=== PATIENT | female | born 1940 | race Caucasian/White ===

== ENCOUNTER 2017-01-02 09:51 | Inpatient (IN) | payer OTHER, MEDICARE ==
[~2017-01-02] VITALS: Ht 154.9 cm; Wt 79.2 kg
[~2017-01-02 09:51] MED LIST: CALC-1009 PO; DILT240C93 PO; HYDR25TA PO; WOMENS VITAMIN PO
[2017-01-02] MEDS ORDERED: METO-323 PO (10:14)
[2017-01-02] MEDS ORDERED: SIMV5TAB6 PO (10:14)
[2017-01-02] MEDS ORDERED: METF500T4 PO (10:14)
[2017-01-02 10:40] LABS: BASOPHILS % (AUTO) 0.4 % (0.0-2.0); HEMATOCRIT 39.7 % (36-46); HEMOGLOBIN 13.2 g/dL (12.0-16.0); LYMPHOCYTES # (AUTO) 2.7 K/uL (1.0-4.8); LYMPHOCYTES % (AUTO) 25.8 % (22.0-44.0); MEAN CORPUSCULAR HGB CONC 33.2 G/dL (31.0-37.0); MEAN CORPUSCULAR VOLUME 90 fL (80-100); MONOCYTES % (AUTO) 9.2 % (2.0-9.0); NEUTROPHILS # (AUTO) 6.6 K/uL (1.8-7.7); NEUTROPHILS % (AUTO) 63.6 % (40.0-70.0); PLATELET COUNT (AUTO) 351 K/uL (150-450); RED BLOOD CELL COUNT(AUTO) 4.38 MIL/uL (4.00-5.20); WHITE BLOOD COUNT (AUTO) 10.4 K/uL (4.5-11.0)
[2017-01-02 10:48] LABS: ANION GAP 9 mmol/L (8-16); CALCIUM, TOTAL 9.3 mg/dL (8.8-10.5); CARBON DIOXIDE 29 mmol/L (22-29); CHLORIDE 99 mmol/L (98-107); CREATININE 0.71 mg/dL (0.60-1.30); GLOMERULAR FILTR. RATE CALC > 60 mL/min (>60); POTASSIUM 3.8 mmol/L (3.5-5.1); SODIUM SERUM 137 mmol/L (136-145); UREA NITROGEN, BLOOD 13 mg/dL (7-18)
[2017-01-02 10:52] LABS: PROTHROMBIN TIME 10.6 SEC (9.4-11.6)
[2017-01-02 10:56] LABS: ALANINE AMINOTRANSFERASE 24 U/L (12-78); ALBUMIN 3.6 g/dL (3.4-5.0); ASPARTATE AMINOTRANSFERASE 13 U/L (15-37); BILIRUBIN,TOTAL 0.5 mg/dL (0.1-1.0); CREATINE KINASE, TOTAL 58 U/L (26-192); TOTAL PROTEIN, SERUM 7.3 g/dL (6.4-8.2)
[2017-01-02] MEDS ORDERED: ASPIRIN 81 MG CHEWABLE TABLET PO ONE ×2 (11:30→12:00)
[2017-01-02 12:35] LABS: HEMOGLOBIN A1C 6.9 % (4.5-6.2)
[2017-01-02 12:42] LABS: VITAMIN B12 LEVEL 746 pg/mL (211-911)
[2017-01-02 13:05] LABS: CHOL/HDL RATIO 4.7 (3.9-5.7); THYROID STIMULATING HORMONE 1.15 uIU/mL (0.36-3.74)
[2017-01-02 13:24] VITALS: BP 111/54
[2017-01-02 17:14] VITALS: BP 198/86
[2017-01-02 17:34] VITALS: BP 189/94
[2017-01-02] MEDS ORDERED: MORPHINE SULFATE 2 MG/ML SYRINGE IVP PRN (18:15)
[2017-01-02] MEDS: DILTIAZEM HCL CD 240 MG ER CAPSULE PO SCH (19:18)
[2017-01-02] MEDS: ACETAMINOPHEN 325 MG TABLET PO PRN (19:18)
[2017-01-02 19:32] LABS: GLUCOSE,POINT OF CARE 118 MG/DL (70-110)
[2017-01-02 21:24] VITALS: BP 156/78
[2017-01-02 23:14] VITALS: BP 157/65
[2017-01-03] VITALS (8 sets, daily range): BP systolic 146–184; BP diastolic 64–97
[2017-01-03] MEDS: HEPARIN SODIUM,PORCINE 5,000 UNITS/ML VIAL SQ SCH ×4 (00:05→23:41)
[2017-01-03] MEDS: PANTOPRAZOLE SODIUM 40 MG DR TABLET PO SCH (08:41)
[2017-01-03] MEDS: ACETAMINOPHEN 325 MG TABLET PO PRN ×2 (08:42→19:01)
[2017-01-03] MEDS ORDERED: TraMADol HCL 50 MG TABLET PO PRN (13:15)
[2017-01-03] MEDS: ASPIRIN 81 MG CHEWABLE TABLET PO SCH (13:49)
[2017-01-03] MEDS: METOPROLOL SUCCINATE 25 MG ER TABLET PO SCH (13:49)
[2017-01-03] MEDS: HYDROCHLOROTHIAZIDE 25 MG TABLET PO SCH (13:49)
[2017-01-03 17:33] LABS: GLUCOSE,POINT OF CARE 99 MG/DL (70-110)
[2017-01-03 17:52] LABS: GLUCOSE,POINT OF CARE 142 MG/DL (70-110)
[2017-01-03] MEDS: MetFORMIN HCL 500 MG TABLET PO SCH (17:57)
[2017-01-03] MEDS: DILTIAZEM HCL CD 240 MG ER CAPSULE PO SCH (19:47)
[2017-01-04 04:48] VITALS: BP 141/76
[2017-01-04 07:55] VITALS: BP 107/79
[2017-01-04] MEDS: ACETAMINOPHEN 325 MG TABLET PO PRN (08:10)
[2017-01-04] MEDS: DILTIAZEM HCL CD 240 MG ER CAPSULE PO SCH (08:10)
[2017-01-04] MEDS: METOPROLOL SUCCINATE 25 MG ER TABLET PO SCH (08:10)
[2017-01-04] MEDS: ASPIRIN 81 MG CHEWABLE TABLET PO SCH (08:10)
[2017-01-04] MEDS: HYDROCHLOROTHIAZIDE 25 MG TABLET PO SCH (08:11)
[2017-01-04] MEDS: MetFORMIN HCL 500 MG TABLET PO SCH (08:11)
[2017-01-04] MEDS: PANTOPRAZOLE SODIUM 40 MG DR TABLET PO SCH (08:11)
[2017-01-04] MEDS: HEPARIN SODIUM,PORCINE 5,000 UNITS/ML VIAL SQ SCH (08:11)
[2017-01-04] MEDS ORDERED: SIMVASTATIN 10 MG TABLET PO SCH (09:00)
[2017-01-04] MEDS ORDERED: MULTIVITAMINS, THERAPEUTIC TABLET PO SCH (09:00)
[2017-01-04] MEDS ORDERED: SIMVASTATIN 5 MG TABLET PO SCH (09:00)
[2017-01-04] MEDS ORDERED: CALCIUM OYSTER SHELL 250 MG-VIT D3 125 UNITS TABLET PO SCH (09:00)
[2017-01-04] MEDS ORDERED: ASPI81TA2 PO (11:06)
[2017-01-04] MEDS ORDERED: SIMV-259 PO (11:06)
[2017-01-04 11:34] VITALS: BP 148/75
== END 2017-01-04 12:21 | disposition home or self-care (01) | DRG 69 ==
LOC: EMS 09:53 → AHU 12:38 → 5N 19:50 → 6N 01-03 16:05
PROVIDERS: ADMIT Hospitalist; ATTEND Hospitalist
DX: G45.9 Transient cerebral ischemic attack, unspecified (principal); E11.9 Type 2 diabetes mellitus without complications; I10 Essential (primary) hypertension; E78.5 Hyperlipidemia, unspecified; F80.2 Mixed receptive-expressive language disorder; E78.00 Pure hypercholesterolemia, unspecified; Z91.011 Allergy to milk products; Z79.84 Long term (current) use of oral hypoglycemic drugs; Z79.899 Other long term (current) drug therapy; Z90.49 Acquired absence of other specified parts of digestive tract; Z98.51 Tubal ligation status; Z98.890 Other specified postprocedural states; Z82.3 Family history of stroke; Z82.49 Family history of ischemic heart disease and other diseases of the circulatory system; Z81.2 Family history of tobacco abuse and dependence; Z82.0 Family history of epilepsy and other diseases of the nervous system; Z98.49 Cataract extraction status, unspecified eye
CPT/HCPCS: 70450; 70544; 70551; 82607; 82746; 82962; 83036; 84443; 93005; 93306; 93880; 99285; J1644

== ENCOUNTER → 2017-05-28 | Outpatient (CLI) | payer MEDICARE, OTHER ==
[~2017-05-28] MED LIST changes: +ASPI81TA2 PO; +METF500T4 PO; +METO-323 PO; +SIMV-259 PO
[2017-05-28 09:38] LABS: HEMOGLOBIN A1C 6.8 % (4.5-6.2)
[2017-05-28 09:44] LABS: BASOPHILS % (AUTO) 0.7 % (0.0-2.0); EOSINOPHILS % (AUTO) 2.9 % (1.0-6.0); HEMATOCRIT 40.4 % (36-46); LYMPHOCYTES # (AUTO) 2.7 K/uL (1.0-4.8); LYMPHOCYTES % (AUTO) 26.5 % (22.0-44.0); MEAN CORPUSCULAR HEMOGLOBIN 30.7 pg (26.0-34.0); MEAN CORPUSCULAR HGB CONC 34.7 G/dL (31.0-37.0); MEAN CORPUSCULAR VOLUME 88 fL (80-100); MONOCYTES # (AUTO) 0.9 K/uL (0.1-1.0); MONOCYTES % (AUTO) 8.6 % (2.0-9.0); NEUTROPHILS # (AUTO) 6.3 K/uL (1.8-7.7); NEUTROPHILS % (AUTO) 61.3 % (40.0-70.0); PLATELET COUNT (AUTO) 323 K/uL (150-450); RED BLOOD CELL COUNT(AUTO) 4.57 MIL/uL (4.00-5.20); WHITE BLOOD COUNT (AUTO) 10.3 K/uL (4.5-11.0)
[2017-05-28 09:52] LABS: ALANINE AMINOTRANSFERASE 26 U/L (12-78); ALBUMIN 3.8 g/dL (3.4-5.0); ANION GAP 9 mmol/L (8-16); ASPARTATE AMINOTRANSFERASE 18 U/L (15-37); BILIRUBIN,TOTAL 0.8 mg/dL (0.1-1.0); CALCIUM, TOTAL 9.7 mg/dL (8.8-10.5); CARBON DIOXIDE 28 mmol/L (22-29); CHLORIDE 98 mmol/L (98-107); CHOL/HDL RATIO 4.3 (3.9-5.7); CREATININE 0.81 mg/dL (0.60-1.30); GLOMERULAR FILTR. RATE CALC > 60 mL/min (>60); POTASSIUM 4.1 mmol/L (3.5-5.1); SODIUM SERUM 135 mmol/L (136-145); THYROID STIMULATING HORMONE 2.67 uIU/mL (0.36-3.74); TOTAL PROTEIN, SERUM 7.4 g/dL (6.4-8.2); UREA NITROGEN, BLOOD 15 mg/dL (7-18)
== END | disposition home or self-care (01) ==
LOC: LABPV 07:24
PROVIDERS: ATTEND Internal Medicine
DX: Z00.01 Encounter for general adult medical examination with abnormal findings (principal); E11.69 Type 2 diabetes mellitus with other specified complication; E78.5 Hyperlipidemia, unspecified
CPT/HCPCS: 82043; 82570; 83036; 84443

== ENCOUNTER → 2017-10-08 | Outpatient (CLI) | payer MEDICARE ==
[~2017-10-08] MED LIST changes: -ASPI81TA2 PO; +ASPI81TA39 PO; -METO-323 PO; +METO25XL PO
[2017-10-08 11:47] LABS: HEMOGLOBIN A1C 6.6 % (4.5-6.2)
[2017-10-08 11:53] LABS: ALANINE AMINOTRANSFERASE 25 U/L (12-78); ALBUMIN 3.6 g/dL (3.4-5.0); ANION GAP 9 mmol/L (8-16); ASPARTATE AMINOTRANSFERASE 14 U/L (15-37); BILIRUBIN,TOTAL 0.6 mg/dL (0.1-1.0); CALCIUM, TOTAL 9.8 mg/dL (8.8-10.5); CARBON DIOXIDE 29 mmol/L (22-29); CHLORIDE 98 mmol/L (98-107); CHOL/HDL RATIO 4.4 (3.9-5.7); CREATININE 0.77 mg/dL (0.60-1.30); GLOMERULAR FILTR. RATE CALC > 60 mL/min (>60); POTASSIUM 3.8 mmol/L (3.5-5.1); SODIUM SERUM 136 mmol/L (136-145); TOTAL PROTEIN, SERUM 7.4 g/dL (6.4-8.2); UREA NITROGEN, BLOOD 17 mg/dL (7-18)
== END | disposition home or self-care (01) ==
LOC: LABPV 10:41
PROVIDERS: ATTEND Internal Medicine
DX: E11.69 Type 2 diabetes mellitus with other specified complication (principal); E78.5 Hyperlipidemia, unspecified
CPT/HCPCS: 83036

== ENCOUNTER → 2018-06-08 | Outpatient (CLI) | payer MEDICARE ==
[~2018-06-08] MED LIST changes: -METF500T4 PO; +METF500T6 PO
[2018-06-08 13:10] LABS: EOSINOPHILS % (AUTO) 1.7 % (1.0-6.0); HEMATOCRIT 36.8 % (36-46); HEMOGLOBIN 12.8 g/dL (12.0-16.0); LYMPHOCYTES # (AUTO) 2.8 K/uL (1.0-4.8); LYMPHOCYTES % (AUTO) 26.4 % (22.0-44.0); MEAN CORPUSCULAR HEMOGLOBIN 30.7 pg (26.0-34.0); MEAN CORPUSCULAR HGB CONC 34.9 G/dL (31.0-37.0); MEAN CORPUSCULAR VOLUME 88 fL (80-100); MONOCYTES # (AUTO) 0.9 K/uL (0.1-1.0); NEUTROPHILS # (AUTO) 6.5 K/uL (1.8-7.7); NEUTROPHILS % (AUTO) 61.9 % (40.0-70.0); PLATELET COUNT (AUTO) 335 K/uL (150-450); RED BLOOD CELL COUNT(AUTO) 4.19 MIL/uL (4.00-5.20); RED CELL DISTRIBUTION WIDTH 13.5 % (11.5-14.5)
[2018-06-08 13:23] LABS: HEMOGLOBIN A1C 6.6 % (4.5-6.2)
[2018-06-08 13:58] LABS: ALANINE AMINOTRANSFERASE 19 U/L (12-78); ALBUMIN 3.7 g/dL (3.4-5.0); ALKALINE PHOSPHATASE 66 U/L (46-116); ANION GAP 9 mmol/L (8-16); ASPARTATE AMINOTRANSFERASE 13 U/L (15-37); BILIRUBIN,TOTAL 0.5 mg/dL (0.1-1.0); CALCIUM, TOTAL 9.8 mg/dL (8.8-10.5); CARBON DIOXIDE 28 mmol/L (22-29); CHLORIDE 100 mmol/L (98-107); CHOL/HDL RATIO 5.1 (3.9-5.7); CHOLESTEROL 198 mg/dL (131-200); CREATININE 0.82 mg/dL (0.60-1.30); GLOMERULAR FILTR. RATE CALC > 60 mL/min (>60); GLUCOSE,RANDOM 124 mg/dL (70-110); HDL CHOLESTEROL 39 mg/dL (40-60); LDL CHOL (CALC.) 100 mg/dL (0-130); SODIUM SERUM 137 mmol/L (136-145); THYROID STIMULATING HORMONE 2.07 uIU/mL (0.36-3.74); TOTAL PROTEIN, SERUM 7.5 g/dL (6.4-8.2); TRIGLYCERIDES 295 mg/dL (15-150); UREA NITROGEN, BLOOD 20 mg/dL (7-18)
== END | disposition home or self-care (01) ==
LOC: LABPV 12:40
PROVIDERS: ATTEND Internal Medicine
DX: E11.69 Type 2 diabetes mellitus with other specified complication (principal); E78.5 Hyperlipidemia, unspecified; Z79.899 Other long term (current) drug therapy; I10 Essential (primary) hypertension; E78.00 Pure hypercholesterolemia, unspecified; Z82.3 Family history of stroke; Z91.011 Allergy to milk products
CPT/HCPCS: 82306; 83036; 84443